=== PATIENT | female | born 2000 | race Caucasian/White ===

== ENCOUNTER 2023-06-07 13:55 | Emergency (ER) | payer SELFPAY ==
[2023-06-07 13:58] VITALS: BP 104/61; PULSE 115; RESP 20; O2SAT 96; BMI 27.5
--- NOTE | 2023-06-07 14:15 | ED_ITS ---
HPI - General Adult General Chief complaint: Upper Respiratory Infection Stated complaint: SHOULDER/BACK PAIN Time Seen by Provider: 06/07/23 13:53 Source: patient Mode of arrival: walk-in Limitations: no limitations History of Present Illness HPI narrative: Patient is a 23-year-old female Who presents to the emergency department for multiple complaints. She states she has had flulike illness over the last 3 day s with fevers as high as 102.0 Fahrenheit, Vomiting, cough, congestion. She reports severe low back pain above the tailbone. She states she has had several months of issues with constipation. No diarrhea. She denies dysuria or hematuria. She reports diffuse upper abdominal pain. No sputum production or hemoptysis. She is not concerned for . She has been taking Tylenol, last dose this morning for fever yesterday. Related Data Previous Rx's Medication Instructions Recorded amoxicillin 500 mg capsule 500 mg PO TID 10 days #30 caps 06/07/23 sxkheyibjblxldh-vrltmfhpdrikmil-TV 10 ml PO Q6H PRN cold symptoms 06/07/23 2 mg-30 mg-10 mg/5 mL oral syrup #200 mL (Bromfed DM) ketorolac 10 mg tablet 10 mg PO TID PRN pain #10 tabs 06/07/23 ondansetron 4 mg disintegrating 4 mg PO Q6H PRN nausea and 06/07/23 tablet vomiting #12 tabs Allergies Allergy/AdvReac Type Severity Reaction Status Date / Time No Known Drug Allergies Allergy Verified 06/07/23 13:57 Review of Systems ROS Constitutional Reports: fever and chills Eyes Denies: change in vision Ears, nose, mouth, and throat Reports: nasal congestion; Denies: throat pain Cardiovascular Denies: chest pain Respiratory Reports: cough; Denies: shortness of breath Gastrointestinal Reports: abdominal pain, nausea and vomiting; Denies: diarrhea Genitourinary Denies: painful urination Musculoskeletal Reports: back pain; Denies: neck pain Integumentary/Breast Denies: rash Neurological Denies: headache PFSH PFSH Social History Smoking status: Former smoker Exam Narrative Exam Narrative: Gen.: Awake, alert, in no distress Head: Normocephalic, atraumatic ENT: Moist mucous membranes, No pharyngeal erythema Respiratory: No respiratory distress, lungs clear bilaterally Cardio: Regular rate and rhythm Gastrointestinal: Abdomen is soft, Minimally tender diffusely across the upper abdomen with no guarding or rebound Back: No bony point tenderness of the T-spine or L-spine with diffuse tenderness of the low back above the tailbone, no CVA tenderness Extremities: Moves extremities equally Psych: Normal mood and affect Neuro: No focal neuro deficit Skin: Warm, dry, intact Constitutional Vital Signs, click to edit/add: Last Vital Signs Temp 99.0 F 06/07/23 14:26 Pulse 107 H 06/07/23 19:46 Resp 16 06/07/23 19:46 BP 119/75 06/07/23 19:46 Pulse Ox 98 06/07/23 19:46 Course Vital Signs Vital signs: Vital Signs Pulse Rate 115 H 06/07/23 13:58 Respiratory Rate 20 06/07/23 13:58 Blood Pressure 104/61 06/07/23 13:58 Pulse Oximetry 96 06/07/23 13:58 Temperature 99.0 F 06/07/23 14:26 Pulse Rate 107 H 06/07/23 19:46 Respiratory Rate 16 06/07/23 19:46 Blood Pressure 119/75 06/07/23 19:46 Pulse Oximetry 98 06/07/23 19:46 Medical Decision Making [facility] Narrative Medical decision making narrative: Patient was treated with IV fluids, pain medication, nausea medication. Lab studies, urine specimen obtained with respiratory swabs. Patient is positive for strep, she has an elevated white blood cell count, normal creatinine and electrolytes. Urine with no evidence of urinary tract infection. Because of the elevated white blood cell count and the patient's complaint of severe abdominal and back pain, chest x-ray was obtained and a CT of the abdomen and pelvis was ordered. Her CT scanner went down and was nonfunctioning. It was explained to the patient that delaying treatment, she was sent over to [facility] by ambulance, retreated with morphine for pain and CT of the abdomen and pelvis was reviewed by [facility] radiology showing no evidence of acute process in the abdomen. Patient will be treated for strep throat with amoxicillin, she is given a short course of Toradol, Zofran, Bromfed-DM for home. Follow-up with PCP and return to the ER if symptoms change or worsen. She is resting comfortably on reevaluation. Medical Records Medical records reviewed: Yes I reviewed the patient's medical records Lab Data Lab results reviewed: Yes I reviewed the patient's lab results Labs: Lab Results 06/07/23 06/07/23 06/07/23 Range/Units 14:00 14:22 14:35 WBC 18.1 H (4.0-11.0) 10^3/uL RBC 4.17 L (4.20-5.40) 10^6/uL Hgb 13.5 (12.0-16.0) g/dL Hct 39.4 (36.0-48.0) % MCV 94.5 (81.0-99.0) fL MCH 32.4 (26.7-34.0) pg MCHC 34.3 (29.9-35.2) g/dL RDW 12.4 (11.0-15.0) % Plt Count 243 (150-450) 10^3/uL MPV 10.0 (9.5-13.5) fL Neut % (Auto) 89.2 H (43.0-75.0) % Lymph % (Auto) 4.0 L (20.5-60.0) % [place] % (Auto) 5.8 (1.7-12.0) % Eos % (Auto) 0.1 L (0.9-7.0) % Baso % (Auto) 0.2 (0.2-2.0) % Neut # (Auto) 16.1 H (1.4-6.5) 10^3/uL Lymph # (Auto) 0.7 L (1.2-3.8) 10^3/uL [place] # (Auto) 1.0 H (0.3-0.8) 10^3/uL Eos # (Auto) 0.0 (0.0-0.7) 10^3/uL Baso # (Auto) 0.0 (0.0-0.1) 10^3/uL Abs Immat Gran (auto) 0.12 H (0.00-0.03) 10^3/uL Imm/Tot Granulo (auto) 0.7 H (0.0-0.5) % Sodium 133 L (136-145) mmol/L Potassium 3.6 (3.5-5.1) mmol/L Chloride 100 (98-107) mmol/L Carbon Dioxide 22.8 (21.0-32.0) mmol/L Anion Gap 13.8 BUN 7.0 (7.0-18.0) mg/dL Creatinine 0.78 (0.55-1.02) mg/dL Est GFR ( Amer) >60 (>=60) Est GFR (Non-Af Amer) >60 (>=60) BUN/Creatinine Ratio 9.0 Glucose 86 (74-106) mg/dL Lactate 1.1 (0.4-2.0) mmol/L Calcium 8.9 (8.5-10.1) mg/dL Total Bilirubin 0.4 (0.2-1.0) mg/dL AST 18 (15-37) U/L ALT 22 (14-59) U/L Alkaline Phosphatase 60 (46-116) U/L Total Protein 8.1 (6.4-8.2) g/dL Albumin 4.0 (3.4-5.0) g/dL Globulin 4.1 g/dL Albumin/Globulin Ratio 1.0 Lipase 18.0 (16.0-77.0) U/L Serum HCG, Qual Negative (NEGATIVE) Urine Color Yellow (YELLOW) Urine Clarity Clear (CLEAR) Urine pH 5.5 (5.0-9.0) Ur Specific Merlin >=1.030 A (1.005-1.025) Urine Protein Trace (NEG/TRACE) mg/dL Urine Glucose (UA) Negative (NEGATIVE) mg/dL Urine Ketones 15 A (NEGATIVE) mg/dL Urine Occult Blood Negative (NEGATIVE) Urine Nitrite Negative (NEGATIVE) Urine Bilirubin Small A (NEGATIVE) Urine Urobilinogen 1.0 (0.2-1.0) EU/dL Ur Leukocyte Esterase Negative (NEGATIVE) Influenza Type A Ag Negative Influenza Type B Ag Negative SARS-CoV-2 Ag (CV2AG) Negative (NEGATIVE) Streptococcus Screen Positive A Imaging Data Chest x-ray: Attestation: I have reviewed the pertinent imaging results. Radiologist's impression: ITS Impressions Chest X-Ray 06/07/23 14:55 IMPRESSION: 1. No acute cardiopulmonary process. Electronically authenticated by: LUNA DOMINGUEZ Date: 06/07/2023 16:26 CT scan - abdomen: Radiologist's impression: ITS Impressions Chest X-Ray 06/07/23 14:55 IMPRESSION: 1. No acute cardiopulmonary process. Electronically authenticated by: LUNA DOMINGUEZ Date: 06/07/2023 16:26 Discharge Plan Discharge Stand Alone Forms: Portal Instructions Chief Complaint: Upper Respiratory Infection Clinical Impression: Low back pain, Acute streptococcal pharyngitis, Nausea & vomiting, Abdominal pain Patient Disposition: Home, Self-Care Time of Disposition Decision: 19:51 Condition: Good Prescriptions / Home Meds: New amoxicillin 500 mg capsule 500 mg PO TID 10 Days Qty: 30 0RF ketorolac 10 mg tablet 10 mg PO TID PRN (Reason: pain) Qty: 10 0RF njvwfupsivuoqun-fjwvbfdyc-IN [Bromfed DM] 2-30-10 mg/5 mL syrup 10 ml PO Q6H PRN (Reason: cold symptoms) Qty: 200 0RF ondansetron 4 mg tablet,disintegrating 4 mg PO Q6H PRN (Reason: nausea and vomiting) Qty: 12 0RF Instructions: Strep Throat (ED), Acute Nausea and Vomiting (ED), Acute Abdominal Pain (ED), Acute Low Back Pain (ED) Referrals: ALEX OG [Primary Care Provider] - 1 week
[2023-06-07 14:26] VITALS: TEMP 37.2
[2023-06-07 14:37] LABS: Bilirubin Urine SMALL (NEGATIVE); Blood Urine NEGATIVE (NEGATIVE); Clarity Urine CLEAR (CLEAR); Color Urine YELLOW (YELLOW); Glucose Urine UA NEGATIVE (NEGATIVE); Ketones Urine 15 mg/dL (NEGATIVE); Leukocyte Esterase Urine NEGATIVE (NEGATIVE); Nitrite Urine NEGATIVE (NEGATIVE); Protein Urine TRACE mg/dL (NEG/TRACE); Specific Gravity Urine >=1.030 (1.005-1.025); pH Urine 5.5 (5.0-9.0)
[2023-06-07 14:38] LABS: Urine Microscopic Indicated NO
[2023-06-07] MEDS: KETOROLAC TROMETHAMINE 30 MG/ML VIAL IVP (14:48)
[2023-06-07] MEDS: 0.9 % SODIUM CHLORIDE 1,000 ML 999 ML IV (14:48)
[2023-06-07] MEDS: ONDANSETRON PF 4 MG/2 ML VIAL IV (14:48)
[2023-06-07 14:53] LABS: Basophils Percent Auto 0.2 % (0.2-2.0); Eosinophils Percent Auto 0.1 % (0.9-7.0); Hematocrit 39.4 % (36.0-48.0); Hemoglobin 13.5 g/dL (12.0-16.0); Immature Granulocytes Abs Auto 0.12 10^3/uL (0.00-0.03); Immature Granulocytes Pct Auto 0.7 % (0.0-0.5); Lymphocytes Absolute Auto 0.7 10^3/uL (1.2-3.8); Mean Corpuscular HGB Conc 34.3 g/dL (29.9-35.2); Mean Corpuscular Hemoglobin 32.4 pg (26.7-34.0); Mean Corpuscular Volume 94.5 fL (81.0-99.0); Monocytes Percent Auto 5.8 % (1.7-12.0); Neutrophils Absolute Auto 16.1 10^3/uL (1.4-6.5); Neutrophils Percent Auto 89.2 % (43.0-75.0); Platelet Count 243 10^3/uL (150-450); Red Blood Count 4.17 10^6/uL (4.20-5.40); Red Cell Distribution Width 12.4 % (11.0-15.0); White Blood Count 18.1 10^3/uL (4.0-11.0)
[2023-06-07 14:55] LABS: Influenza Virus A Antigen Negative; Influenza Virus B Antigen Negative; Internal Control Within Normal Limits; SARS-CoV-2 Ag NEGATIVE (NEGATIVE); Strep A Antigen Screen Positive
--- NOTE | 2023-06-07 14:55 | XR_ITS ---
The [address] [address] Patient Name: FRANKLIN COUCH MRN: [id number] date: 2000 Sex: F Assigned Patient Location: ER Current Patient Location: ER Accession/Order Number: [id number] Exam Date: 06/07/2023 16:05 Report Date: 06/07/2023 16:26 At the request of: SUDHIR MO Procedure: XR chest 1V EXAMINATION: XR chest 1V HISTORY: Cough , fever, body aches COMPARISON: No relevant comparison available. FINDINGS: LUNGS: No significant pulmonary parenchymal abnormalities. VASCULATURE: No increased pulmonary vasculature. PLEURA: No pneumothorax, effusion, or pleural thickening. CARDIAC: No cardiomegaly or cardiac silhouette abnormality. MEDIASTINUM: No visible mass or adenopathy. BONES: No fracture or visible bone lesion. OTHER: Negative. XR/XR chest 1V IMPRESSION: 1. No acute cardiopulmonary process. Electronically authenticated by: LUNA DOMINGUEZ Date: 06/07/2023 16:26
[2023-06-07 15:10] LABS: HCG Qualitative NEGATIVE (NEGATIVE)
[2023-06-07 15:21] LABS: Lactate/Lactic Acid 1.1 mmol/L (0.4-2.0)
[2023-06-07 15:52] LABS: Alanine Aminotransferase 22 U/L (14-59); Alkaline Phosphatase 60 U/L (46-116); Anion Gap 13.8; Aspartate Amino Transferase 18 U/L (15-37); Bilirubin Total 0.4 mg/dL (0.2-1.0); Calcium 8.9 mg/dL (8.5-10.1); Carbon Dioxide 22.8 mmol/L (21.0-32.0); Chloride 100 mmol/L (98-107); Estimated GFR (African America >60 (>=60); Estimated GFR (Non-African Ame >60 (>=60); Globulin 4.1 g/dL; Glucose 86 mg/dL (74-106); Potassium 3.6 mmol/L (3.5-5.1); Sodium 133 mmol/L (136-145); Total Protein 8.1 g/dL (6.4-8.2)
[2023-06-07] MEDS: MORPHINE SULFATE 4 MG/ML VIAL IV (17:34)
[2023-06-07] MEDS: 0.9 % SODIUM CHLORIDE 1,000 ML 125 ML IV (17:35)
--- NOTE | 2023-06-07 18:15 | PC.NURSE ---
181 - [facility] leaving with pt to [facility] to get CT scan. IV remained in arm.
[2023-06-07 19:46] VITALS: BP 119/75; PULSE 107; RESP 16; O2SAT 98
== END 2023-06-07 20:08 | disposition home or self-care (01) ==
PROVIDERS: Physician Assistant; Emergency Provider Emergency Medicine Emergency Medical Services; PCP Family Medicine
DX: J02.0 Streptococcal pharyngitis (principal); R11.2 Nausea with vomiting, unspecified; R10.9 Unspecified abdominal pain; M54.50 Low back pain, unspecified; Z87.891 Personal history of nicotine dependence; Z20.822 Contact with and (suspected) exposure to COVID-19
CPT/HCPCS: 36415; 71045; 74177; 80053; 81003; 83605; 83690; 84703; 85025; 87804; 87811; 87880; 96361; 96374; 96375; 99285

== ENCOUNTER 2024-04-11 12:44 | Emergency (ER) | payer MEDICAID, SELFPAY ==
[2024-04-11 12:56] VITALS: BP 115/64; PULSE 92; TEMP 36.8; O2SAT 98; BMI 27.5
[2024-04-11 13:50] VITALS: BP 107/62; PULSE 70; O2SAT 100
--- NOTE | 2024-04-11 15:00 | ED.GENADUL1 ---
HPI HPI - General Adult General Chief complaint: Urogenital-Female Stated complaint: IUD ISSUES Time Seen by Provider: 04/11/24 14:02 Source: patient Mode of arrival: walk-in History of Present Illness HPI narrative: Patient is a 23-year-old female who is presenting to the ER with having dysfunctional uterine bleeding, and some abdominal cramping yesterday. Patient had intercourse with her significant other yesterday 1:11 AM. Patient afterwards had some bleeding that lasted 2 to 4 hours intermittently with some small clots. Patient has no foreign bodies inside her vaginal canal. She adamantly denies any type of physical or sexual assault. Patient said that during intercourse there is no pain feet during or after intercourse. Patient does have an IUD. Patient is concerned that her IUD might have become dislodged and she is here because she wants an ultrasound. Patient said that her IUD was placed by Dr. Coleman 2 or 3 years ago. Patient says that she is a patient of Dr. Springer's because she has been seen in that office years ago, but she has not seen Dr. Springer previously. Patient knows that we can do ultrasounds in the ER, so she came to the ER so she can have ultrasound to make sure her IUD is in place. Today she is having no vaginal bleeding, no pelvic pain, no discomfort. No flank pain or back pain. No other acute complaints. All systems are negative except as noted/marked. All systems reviewed and otherwise negative. Nurses note and vital signs reviewed and patient is not hypoxic. Poor hygiene. General: The patient appears well and in no apparent distress. Patient is resting comfortably on cart. Patient is not toxic, lethargic, or listless Skin: Warm, dry, no pallor noted. There is no rash noted. No petechiae, purpura. Head: Normocephalic, atraumatic Eye: Normal conjunctiva, no drainage, EOMI. PERRL Ears, Nose, Mouth, and Throat: oral mucosa is moist. Patient has a cold sore to the middle of her upper lip. Nares patent. Mouth without vesicles. Cardiovascular: Regular Rate and Rhythm, no murmur, gallop, rub Respiratory: Patient is in no distress, no accessory muscle use, lungs are clear to auscultation, no wheezing, rales or rhonchi Back: non-tender, no CVA tenderness bilaterally to percussion. No CT LS midline pain GI: No suprapubic tenderness to palpation. Minimal bilateral inguinal tenderness to palpation, abdomen is soft, no peritoneal signs, nonsurgical abdomen. No tenderness to palpation, no masses appreciated. No rebound, guarding, or rigidity noted. No distention Musculoskeletal: Patient has full range of motion of all of the extremities, no motor, sensory, or focal neurological deficits Neurological: A&O x4, normal speech Psychiatric: Cooperative Related Data Previous Rx's ?Medication ?Instructions ?Recorded amoxicillin 500 mg capsule 500 mg PO TID 10 days #30 caps 06/07/23 scwlojmsdictxoa-ympeksypdqsxram-PH 10 ml PO Q6H PRN cold symptoms 06/07/23 2 mg-30 mg-10 mg/5 mL oral syrup #200 mL (Bromfed DM) ketorolac 10 mg tablet 10 mg PO TID PRN pain #10 tabs 06/07/23 ondansetron 4 mg disintegrating 4 mg PO Q6H PRN nausea and 06/07/23 tablet vomiting #12 tabs Allergies Allergy/AdvReac Type Severity Reaction Status Date / Time No Known Drug Allergies Allergy Verified 06/07/23 13:57 Opioid HPI Opioid Management Most Recent Opioid Data: Last Pain Scale 10 06/07/23 19:42 06/07/23 PFSH PFSH Social History Smoking status: Former smoker Little interest or pleasure in doing things: not at all Feeling down, depressed, or hopeless: not at all Exam Constitutional Vital Signs, click to edit/add: Last Vital Signs Temp 98.3 F 04/11/24 12:56 Pulse 70 04/11/24 13:50 Resp 18 04/11/24 13:50 BP 107/62 04/11/24 13:50 Pulse Ox 100 04/11/24 13:50 O2 Del Method Room Air 04/11/24 13:50 Course Vital Signs Vital signs: Vital Signs Temperature 98.3 F 04/11/24 12:56 Pulse Rate 92 H 04/11/24 12:56 Respiratory Rate 16 04/11/24 12:56 Blood Pressure 115/64 04/11/24 12:56 Pulse Oximetry 98 04/11/24 12:56 Oxygen Delivery Method Room Air 04/11/24 12:56 Temperature 98.3 F 04/11/24 12:56 Pulse Rate 70 04/11/24 13:50 Respiratory Rate 18 04/11/24 13:50 Blood Pressure 107/62 04/11/24 13:50 Pulse Oximetry 100 04/11/24 13:50 Oxygen Delivery Method Room Air 04/11/24 13:50 Medical Decision Making MDM Narrative Medical decision making narrative: I have spoken to Dr. Springer before I saw the patient. Dr. Springer called the office, patient is not established in their office. Dr. Springer stated that he is not her physician. He agreed that if she has no symptoms at this time, there is no acute indication to do any ultrasound, patient can be seen as an outpatient. I educated patient at this time that there is no emergent indication to do an ultrasound just to make sure her IUD is intact. She has no abdominal pain, no significant pelvic pain at all. She has no vaginal bleeding today. I told the patient that we cannot do an ultrasound just because she is requesting one, it is not the standard of care and she has no emergent reason to perform ultrasound at this time. Patient was not happy with this, patient was given referral to Dr. Springer office to follow-up as an outpatient if needed. No questions at discharge. Patient was told that she starts having significant abdominal pain, vaginal bleeding, any other acute concerns to please return back to the ER. Discharge Plan Discharge Chief Complaint: Urogenital-Female Clinical Impression: DUB (dysfunctional uterine bleeding) Patient Disposition: Home, Self-Care Time of Disposition Decision: 14:58 Condition: Fair Mode of Transportation: Private Vehicle Prescriptions / Home Meds: No Action amoxicillin 500 mg capsule 500 mg PO TID 10 Days Qty: 30 0RF ketorolac 10 mg tablet 10 mg PO TID PRN (Reason: pain) Qty: 10 0RF ktyofncutqfsrrq-yadhxiymb-QQ [Bromfed DM] 2-30-10 mg/5 mL syrup 10 ml PO Q6H PRN (Reason: cold symptoms) Qty: 200 0RF ondansetron 4 mg tablet,disintegrating 4 mg PO Q6H PRN (Reason: nausea and vomiting) Qty: 12 0RF Print Language: Bangladeshi Additional Instructions: Call Dr. Springer office for follow-up and reevaluation and establish new patient care. If you are having intractable abdominal pelvic pain, intractable or significant vaginal bleeding, or any other acute concerns, return to ER. Referrals: tucker [Other] - 1 week Santi Springer DO [Physician] - 1 week ALEX OG [Primary Care Provider] - 1 week Discharge Date/Time: 04/11/24 15:03
== END 2024-04-11 15:03 | disposition home or self-care (01) ==
PROVIDERS: Emergency Provider Emergency Medicine; PCP Family Medicine
DX: N93.8 Other specified abnormal uterine and vaginal bleeding (principal); Z97.5 Presence of (intrauterine) contraceptive device; Z87.891 Personal history of nicotine dependence
CPT/HCPCS: 99281